=== PATIENT | female | born 1990 | race Caucasian/White ===

== ENCOUNTER 2016-11-27 08:12 | Inpatient (IN) ==
[2016-11-27] MEDS ORDERED: ONDANSETRON 4 MG/2 ML VIAL IV PRN ×2 (08:29→12:29)
[2016-11-27] MEDS ORDERED: MEPERIDINE 50 MG/1 ML VIAL IV PRN (08:29)
[2016-11-27] MEDS ORDERED: BUTORPHANOL 2 MG/ML VIAL IV PRN (08:29)
[2016-11-27] MEDS ORDERED: LACTATED RINGERS 1,000 ML IV SCH (08:30)
[2016-11-27] MEDS ORDERED: AMPICILLIN INJ 2,000 MG in SODIUM CHLORIDE 0.9% 100 ML IV ONE (08:34)
[2016-11-27] MEDS ORDERED: ePHEDrine 50 MG/ML AMP IV PRN (08:39)
[2016-11-27] MEDS ORDERED: FAMOTIDINE 20 MG/2 ML VIAL IV ONE (08:39)
[2016-11-27] MEDS ORDERED: hydrOXYzine HCL 25 MG/1 ML VIAL IM PRN (08:39)
[2016-11-27] MEDS ORDERED: diphenhydrAMINE 50 MG/1 ML VIAL IV PRN (08:39)
[2016-11-27] MEDS ORDERED: fentaNYL 2 MCG/ROPIV 0.2% EPID 150 ML EPIDURAL SCH (08:39)
[2016-11-27] MEDS ORDERED: LACTATED RINGERS 1,000 ML IV ONE (08:39)
[2016-11-27 08:43] LABS: Basophils % 0.1 % (0.0-0.8); Eosinophils % 0.1 % (0.00-10.9); Hematocrit 27.3 VOL% (35.7-47.0); Immature Granulocytes % 0.6 %; Immature Granulocytes Absolute 0.05 #; Lymphocytes # 1.1 10*3/uL (1.4-4.0); Lymphocytes % 12.6 % (21.3-54.2); Mean Corpuscular Hemoglobin 25 PG (27-34); Mean Corpuscular Volume 76.5 FL (87-102); Monocytes # 0.7 10*3/uL (0.11-0.8); Monocytes % 8.2 % (1.7-12.7); NRBC # 0.02 10*3/uL; Neutrophils # 6.6 10*3/uL (1.4-7.4); Neutrophils % 78.4 % (38.7-73.9); Platelet Count 247 T/CUMM (130-400); Red Blood Count 3.57 MC/CUMM (3.8-5.5); Red Cell Distribution Width 16.4 % (9.3-17.3); White Blood Count 8.4 T/CUMM (4-12)
[2016-11-27] MEDS ORDERED: CITRIC ACID/SODIUM CITRATE 30 ML UDCUP ONE (08:52)
[2016-11-27] MEDS ORDERED: CITRIC ACID/SODIUM CITRATE 30 ML UDCUP PO ONE (08:57)
[2016-11-27 09:27] LABS: Albumin 2.4 G/DL (3.4-5.0); Bilirubin,Total 0.4 MG/DL (0.2-1.0); Calcium 8.6 MG/DL (8.5-10.1); Osmolality,Calculated 275.5 MOS/KG (273-304); Potassium 3.5 MMOL/L (3.5-5.1); Total Protein 6.7 G/DL (6.4-8.3); Uric Acid 4.4 MG/DL (2.6-6.0)
[2016-11-27] MEDS ORDERED: OXYTOCIN/LR 20 UNIT/1,000 ML BAG IV SCH (10:00)
[2016-11-27 11:02] LABS: Apearance,Urine CLEAR (Clear); Bilirubin,Urine Small mg/dL (Negative); Blood, Urine Negative (Negative); Glucose,Urine (UA) Negative (Negative); Ketones,Urine 20 mg/dL (Negative); Mucus,Urine Few /LPF (Occasional); Nitrite,Urine Negative (Negative); Protein,Urine 100 MG/DL; RBC,Urine 4 /HPF (0-4); Squamous Epithelial Cell,Urine Occasional /HPF (0-10); Urine Color Dark yellow (Yellow); Urine Specific Gravity 1.035 (1.001-1.035); Urine Urobilinogen < 2.0 EU/DL (0.2-1.0); WBC,Urine 5 /HPF (0-6)
--- NOTE | 2016-11-27 11:35 | OB/GYN History & Physical ---
History of Present Illness History of present illness: Ms. Walls is a 26 year old female 4 para 2 AB 1, presents in active labor at spine to 6 cm dilated. This patient has had approximately 2 visits. She has a known history of drug usage positive for opioids, and she is also taking Neurontin 3 times a day. Patient claims that the reason why she has not had any care because she did not qualify for Medicaid and did not have any revenue. On admission she was examined and found to be 5 cm, artificial rupture membranes demonstrated thick meconium staining as well. We ordered a amnioinfusion and an epidural. Will await for an anticipated vaginal . Home Medications Medication Instructions Recorded Confirmed Type Gabapentin [Gabapentin] 400 mg PO TID MDD 1200 MG 06/06/16 11/26/16 History Vit No.124/Iron/Folic 1 tablet PO DAILY MDD ONE TAB 11/26/16 11/26/16 History [ Vitamin Tablet] Allergies Allergy/AdvReac Type Severity Reaction Status Date / Time nitrofurantoin Allergy Severe Unknown/Unable Verified 11/27/16 08:42 [From Macrobid] to obtain lamotrigine [From Lamictal] Allergy Intermediate ITCHING Verified 11/27/16 08:42 Sulfa (Sulfonamide Allergy ANAPHYLAXIS Verified 06/06/16 13:37 Antibiotics) Medical,Surgical,& Family Hx - Medical History Cardio: History of: Cardiovascular Problems (TACHYCARDIA) Psychological: History of: Depression HEENT: History 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") - Surgical History HEENT Surgeries: Surgical HX of: Eye Surgery Patient denies: Thyroid Surgery, Tonsilectomy & Adenoidectomy Abdominal Surgeries: Surgical HX of: Appendectomy - Family History Family History: Reports;: Family Diabetes, Family Heart Disease, Family Psychiatric Problems Denies;: Family Anesthesia Reaction - Social History Smoking Status: Never smoker Frequency of Alcohol Use: None Type of Drug Use: None Exam ORTHODONTIST - Constitutional General appearance: mild distress - Antepartum / Post Antepartum Exam Cervix - Dilatation: 5 cm Rupture: Thick meconium Heart Rate: Category 1 - Head Head exam: Present: normal inspection - Eye Eye exam: Present: EOMI Pupils: Present: ALBERTO - ENT ENT exam: Present: normal exam - Neck Neck exam: Present: normal inspection - Respiratory Respiratory exam: Present: clear to auscultation bilaterally - Breast Breasts: as per HPI Menstruation: as per HPI - Cardiovascular Cardiovascular exam: Present: regular rate and rhythm - GI/Abdominal GI/Abdominal exam: Present: normal bowel sounds - Extremities Exam Extremities exam: Present: normal inspection - Back Exam Back exam: Present: normal inspection - Neurological Exam Neurological exam: Present: alert - Psychiatric Psychiatric exam: Present: normal affect - Skin Skin exam: Present: normal color Assessment and Plan (1) No care in current Status: Acute Current Visit: Yes (2) Drug usage Status: Acute Current Visit: Yes (3) Active labor Status: Acute Assessment and plan: Anticipate , risks benefits thoroughly discussed, nursery was notified, social media marketing specialist was also notified Current Visit: Yes Results - Labs CBC & BMP: 11/27/16 08:38 11/27/16 08:38 Quality Measures - VTE Contraindication to Pharmacological VTE Prophylaxis: Clinical assessment deems Pt at low risk, no prophalaxis needed
[2016-11-27] MEDS ORDERED: BISACODYL 10 MG SUPP RECTAL PRN (12:29)
[2016-11-27] MEDS ORDERED: DIPH/TET/ACEL PERT BOOSTER VACCINE 0.5 ML VIAL IM ONE (12:29)
[2016-11-27] MEDS ORDERED: MEASLES/MUMPS/RUBELLA VACCINE 0.5 ML VIAL SUBCUT ONE (12:29)
[2016-11-27] MEDS ORDERED: RHO(D) IMMUNE GLOBULIN 300 MCG SYRINGE IM ONE (12:29)
[2016-11-27] MEDS ORDERED: oxyCODONE/ACETAMINOPHEN 5-325 MG TABLET PO PRN (12:29)
[2016-11-27] MEDS ORDERED: WITCH HAZEL PADS 100/JAR TOP PRN (12:29)
[2016-11-27] MEDS ORDERED: OXYTOCIN/LR 20 UNIT/1,000 ML BAG IV ONE (12:29)
[2016-11-27] MEDS ORDERED: HYDROCORTISONE 2.5% RECTAL CREAM 30 GM TUBE TOP PRN (12:29)
[2016-11-27] MEDS ORDERED: ACETAMINOPHEN 325 MG TABLET PO PRN (12:29)
[2016-11-27] MEDS ORDERED: BENZOCAINE 20%/MENTHOL 0.5% SPRAY 56 GM CAN TOP PRN (12:29)
[2016-11-27] MEDS ORDERED: LANOLIN 50% CREAM 0.3 OZ TUBE TOP PRN (12:29)
--- NOTE | 2016-11-27 12:29 | Event Note ---
Delivery note Stage I of labor Artificial rupture membranes thick meconium staining IUPC with amnioinfusion External monitoring heart tones demonstrated category 1 IV Pitocin Epidural anesthetic Stage II Delivery time is 12:17 PM Female infant Weight is pending at this time Apgars was 6 at 1 minute and 7 at 5 minutes, sats were 40% Fetus was bagged upon exit suction the normal nasal cavity and oral cavity, also the nurses in attendance suctioned and removed deep meconium fluid. Cord blood and cord gas was obtained Stage III Manual removal of the placenta 3 cord vessels Placenta was sent to lab for further evaluation Blood loss was less than 250 cc [place] taken to the NICU for further evaluation
[2016-11-27 12:31] LABS: Cord Venous Blood HCO3 19.3 MMOL/L; Cord Venous Blood PCO2 29.4 MMHG; Cord Venous Blood PO2 21.5 MMHG
[2016-11-27 12:34] LABS: Cord Arterial Blood HCO3 22.1 MMOL/L
[2016-11-27] MEDS ORDERED: AMPICILLIN INJ 1,000 MG in SODIUM CHLORIDE 0.9% 100 ML IV SCH (13:00)
[2016-11-27 13:32] LABS: Barbiturates Screen,Urine Negative (Negative); Benzodiazepines Screen,Urine Negative (Negative); Cannabinoid Screen,Urine Negative (Negative); Opiate Screen,Urine Positive (Negative); Phencyclidine Screen,Urine Negative (Negative)
[2016-11-27] MEDS: IBUPROFEN 800 MG TABLET PO PRN ×2 (14:57→20:46)
[2016-11-27] MEDS: oxyCODONE/ACETAMINOPHEN 5-325 MG TABLET PO PRN (16:17)
[2016-11-28] MEDS: oxyCODONE/ACETAMINOPHEN 5-325 MG TABLET PO PRN ×3 (00:15→13:12)
[2016-11-28 05:41] LABS: Basophils % 0.3 % (0.0-0.8); Eosinophils % 0.1 % (0.00-10.9); Hematocrit 23.1 VOL% (35.7-47.0); Hemoglobin 7.4 GM/DL (12.0-16.0); Immature Granulocytes % 0.7 %; Immature Granulocytes Absolute 0.05 #; Lymphocytes # 1.8 10*3/uL (1.4-4.0); Lymphocytes % 23.9 % (21.3-54.2); Mean Corpuscular Hemoglobin 25 PG (27-34); Mean Corpuscular Volume 78.3 FL (87-102); Mean Platelet Volume 10.6 FL (9.6-12.0); Monocytes # 0.8 10*3/uL (0.11-0.8); NRBC # 0.02 10*3/uL; Neutrophils # 4.7 10*3/uL (1.4-7.4); Platelet Count 195 T/CUMM (130-400); Red Blood Count 2.95 MC/CUMM (3.8-5.5); Red Cell Distribution Width 16.7 % (9.3-17.3); White Blood Count 7.4 T/CUMM (4-12)
[2016-11-28] MEDS: DOCUSATE SODIUM 100 MG CAPSULE PO SCH ×2 (06:09→08:43)
[2016-11-28] MEDS ORDERED: SODIUM CHLORIDE 0.9% 250 ML IV PRN (08:23)
[2016-11-28] MEDS ORDERED: FERROUS SULFATE 325 MG TABLET PO SCH (09:00)
[2016-11-28] MEDS ORDERED: SODIUM CHLORIDE 0.9% 1,000 ML IV SCH (10:30)
[2016-11-28] MEDS: IBUPROFEN 800 MG TABLET PO PRN (11:05)
[2016-11-28 17:25] LABS: Hematocrit 30.8 VOL% (35.7-47.0)
--- NOTE | 2016-11-28 17:26 | Discharge Summary ---
Hospital Course - Hospital Course Hospital Course: 26-year-old female status post vaginal day #1. Patient delivered a term . Meconium staining was noted patient was evaluated by the nursery's and found to have a needle meconium aspiration. The patient was transferred to [facility]. Patient at this time is doing well however blood count was 7 and 23.6. She has no excessive active bleeding or pain or discomfort. Will recommend transfusing 2 units of packed RBCs and patient will be discharged. Final diagnosis is anemia, no care, meconium aspiration of 36 weeks 6 day . Diagnosis - Discharge Diagnosis (1) No care in current Status: Acute (2) Drug usage Status: Acute (3) Active labor Status: Acute Specialty Discharge - Follow Up or Referrals Follow up with: Niko Farley MD [Physician] - Discharge Plan - Discharge Data Condition at Discharge: Stable Discharge Diet: advance to your usual diet Activity: increase activity as tolerated Hygiene: may shower Weight Bearing at Discharge: full weight bearing, weight bear as tolerated Driving: not for (1 week) Contact your physician if you experience:: fever over 101, Difficulty voiding, Shortness of breath, Bleeding - Discharge Medications New NIFEdipine XL TAB [Procardia Xl] 30 mg PO DAILY #14 tablet No Action Gabapentin Cap/Tab [Neurontin Cap/Tab] 400 mg PO TID - Follow Up or Referral Follow Up: Niko Farley MD [Physician] - - Forms/Instructions Instructions: Depression (GEN), Perineal Care (DC), Pre- eclampsia and Eclampsia (DC), Bleeding (DC) Exam - Constitutional Vitals: Period Temp Pulse Resp BP Sys/Irene Pulse Ox Last 24 Hr 97.1 F-99.2 F 64-98 18-20 136-160/76-98 98-100 Discharge Results Procedures and tests throughout hospitalization: Pending Orders 11/28/16 17:16 HH [Hemoglobin and Hematocrit] Routine Labs on day of discharge: Labs from last 24 hours 11/28/16 11/28/16 11/28/16 08:43 07:40 05:26 WBC 7.4 RBC 2.95 L Hgb 7.4 L Hct 23.1 L MCV 78.3 L MCH 25 L MCHC 32.0 RDW 16.7 Plt Count 195 D MPV 10.6 Neut % (Auto) 64.0 Lymph % (Auto) 23.9 [place] % (Auto) 11.0 Eos % (Auto) 0.1 Baso % (Auto) 0.3 Neut # (Auto) 4.7 Lymph # (Auto) 1.8 [place] # (Auto) 0.8 Eos # (Auto) 0.0 Baso # (Auto) 0.0 Immature Gran % 0.7 Nucleated RBC % 0.3 Immature Gran # 0.05 Nucleated RBCs # 0.02 [place] IgG Antibody 33.3 Blood Type Cancelled Antibody Screen Cancelled Crossmatch See Detail Blood Bank Comment Cancelled DS: Provider Date of admission: 11/27/16 12:30 Primary care physician: Akhil Stacy Attending physician on admission: Niko Farley MD Consults: 11/27/16 08:29 Consult to Anesthesiology [CONS] Routine Consulting Provider: Reason for Anesthesiology: Epidural Consult Comment: Epidural for pain managment 11/27/16 10:27 Consult to Case Mgmt/Social Srvs [CONS] Routine Reason for Case Mgmt/Social Srvs: Other Consult Comment: POSITIVE DRUG SCREEN. NO CARE. 11/27/16 12:30 Consult to Artist Consultant [CONS] Routine Consult Artist Consultant: Breast Feeding Discharging clinician: Niko Farley MD
[2016-11-28 18:03] VITALS: BP 162/91
--- NOTE | 2016-12-01 14:24 | Pathology Report from [facility] ---
[facility] ACCESSION # : [id number] PATIENT NAME : Brianna Nunez ORDERING DR : SHANE MARQUEZ MD CLINICAL HX: IUP @ 38.5 weeks - Vaginal delivery with meconium stained and no care. History of positive drug screen. POST-OP DX: Same SPECIMEN INFO: Placenta GROSS DESCRIPTION: Received fresh labeled BRIANNA MCKEON & PLACENTA is a placenta weighing 538 gms and measuring 16.0 x 14.5 x 3.2 cm. The membranes are translucent with meconium staining noted. The umbilical cord measures 29.0 cm, contains three vessels and is centrally inserted. There is a large fibrous area at the base of the cord measuring 5.0 x 2.5 cm. The surface is [place] pink with a 8.5 cm rent area noted. The maternal surface is markedly disrupted with no abnormalities seen on sectioning. Sections submitted A- membranes and cord, B- and maternal surfaces. DIAGNOSIS FOR BRIANNA NUNEZ: PLACENTA, MEMBRANES, UMBILICAL CORD: Focal placental infarction with dystrophic calcification, mild intervillous blood, acute placentitis. Tri-vessel umbilical cord. Membranes with attached blood. COLLECTED DATE: 11/27/2016 [facility] REPORT DATE: 11/30/2016 ELECTRONICALLY SIGNED BY: Delia Beasley M.D. 11/30/2016 - 9:27:38 [facility] [place] [facility]ISION[facility]
== END 2016-11-28 18:14 | disposition home or self-care (01) | DRG 775 ==
LOC: N.LDOUT 08:12 → N.LD 08:14 → N.OB 14:30
PROVIDERS: ADMIT Obstetrics & Gynecology; ATTEND Obstetrics & Gynecology

== ENCOUNTER 2019-10-04 20:51 | Inpatient (IN) ==
[2019-10-04] MEDS ORDERED: LEVOFLOXACIN INJ 750 MG in PREMIX 1 EACH IV STA (22:10)
[2019-10-04] MEDS ORDERED: SODIUM CHLORIDE 0.9% 1,000 ML IV STA (22:10)
[2019-10-04] MEDS ORDERED: ONDANSETRON 4 MG/2 ML VIAL IV STA (22:11)
[2019-10-04] MEDS ORDERED: KETOROLAC 30 MG/1 ML VIAL IV STA (22:11)
[2019-10-04 22:22] LABS: Basophils % 0.5 % (0.0-0.8); Eosinophils % 0.3 % (0.00-10.9); Hematocrit 29.1 VOL% (35.7-47.0); Hemoglobin 8.5 GM/DL (12.0-16.0); Immature Granulocytes % 0.5 %; Immature Granulocytes Absolute 0.03 #; Lymphocytes # 1.5 10*3/uL (1.4-4.0); Lymphocytes % 24.7 % (21.3-54.2); Mean Corpuscular HGB Conc 29.2 GM/DL (32-36); Mean Corpuscular Volume 78.4 FL (87-102); Mean Platelet Volume 9.4 FL (9.6-12.0); Monocytes % 11.5 % (1.7-12.7); Neutrophils % 62.5 % (38.7-73.9); Platelet Count 240 T/CUMM (130-400); Red Blood Count 3.71 MC/CUMM (3.8-5.5); Red Cell Distribution Width 16.3 % (9.3-17.3); White Blood Count 6.2 T/CUMM (4-12)
[2019-10-04 22:46] LABS: Alanine Aminotransferase 20 U/L (13-56); Albumin 3.1 G/DL (3.4-5.0); Alkaline Phosphatase 102 U/L (45-117); Aspartate Amino Transferase 19 U/L (0-37); Bilirubin,Total < 0.39 MG/DL (0.2-1.0); Blood Urea Nitrogen 6 MG/DL (7-18); Calcium 8.6 MG/DL (8.5-10.1); Estimated Glom Filtration Rate 121 ML/MIN; Glucose 93 MG/DL (74-106); Osmolality,Calculated 265.2 MOS/KG (273-304); Total Protein 7.3 G/DL (6.4-8.3)
[2019-10-04] MEDS ORDERED: NICOTINE 21 MG/24 HR PATCH TRANSDERM PRN (23:16)
[2019-10-04] MEDS ORDERED: ZALEPLON 5 MG CAPSULE PO PRN (23:16)
[2019-10-04] MEDS ORDERED: ONDANSETRON 4 MG/2 ML VIAL IV PRN (23:16)
[2019-10-04] MEDS ORDERED: diphenhydrAMINE CAP 25 MG CAPSULE PO PRN (23:16)
[2019-10-04] MEDS ORDERED: GLUCAGON 1 MG VIAL IM PRN (23:16)
[2019-10-04] MEDS ORDERED: ALBUTEROL 2.5 MG/3 ML NEB RESP TX PRN (23:16)
[2019-10-04] MEDS ORDERED: hydrALAZINE 20 MG/1 ML VIAL IV PRN (23:16)
[2019-10-04] MEDS ORDERED: DOCUSATE SODIUM 100 MG CAPSULE PO PRN (23:16)
[2019-10-04] MEDS ORDERED: DEXTROSE 50% 25 GM/50 ML VIAL IV PRN (23:16)
[2019-10-04] MEDS ORDERED: PROMETHAZINE 25 MG/1 ML VIAL IM PRN (23:16)
[2019-10-04] MEDS ORDERED: guaiFENesin/DM ER 600-30 MG TABLET PO PRN (23:16)
[2019-10-04] MEDS ORDERED: SODIUM CHLORIDE 0.9% 1,000 ML IV SCH (23:30)
[2019-10-05] MEDS: MORPHINE 4 MG/1 ML VIAL IV PRN ×2 (00:51→06:41)
[2019-10-05 04:37] LABS: Basophils % 0.5 % (0.0-0.8); Eosinophils % 0.5 % (0.00-10.9); Hematocrit 25.1 VOL% (35.7-47.0); Hemoglobin 7.4 GM/DL (12.0-16.0); Immature Granulocytes % 0.2 %; Immature Granulocytes Absolute 0.01 #; Lymphocytes # 1.2 10*3/uL (1.4-4.0); Lymphocytes % 29.5 % (21.3-54.2); Mean Corpuscular HGB Conc 29.5 GM/DL (32-36); Mean Platelet Volume 10.1 FL (9.6-12.0); Monocytes % 13.6 % (1.7-12.7); Neutrophils % 55.7 % (38.7-73.9); Platelet Count 203 T/CUMM (130-400); Red Blood Count 3.26 MC/CUMM (3.8-5.5); Red Cell Distribution Width 16.4 % (9.3-17.3); White Blood Count 4.1 T/CUMM (4-12)
[2019-10-05 05:52] LABS: Calcium 8.3 MG/DL (8.5-10.1); Osmolality,Calculated 268.8 MOS/KG (273-304)
[2019-10-05] MEDS ORDERED: SODIUM CHLORIDE 0.9% 1,000 ML IV PRN (06:20)
[2019-10-05 06:34] LABS: Basophils % 0.2 % (0.0-0.8); Eosinophils % 0.5 % (0.00-10.9); Hematocrit 27.1 VOL% (35.7-47.0); Immature Granulocytes % 0.5 %; Immature Granulocytes Absolute 0.02 #; Lymphocytes # 0.9 10*3/uL (1.4-4.0); Lymphocytes % 22.4 % (21.3-54.2); Mean Corpuscular HGB Conc 29.5 GM/DL (32-36); Mean Corpuscular Volume 76.8 FL (87-102); Mean Platelet Volume 9.8 FL (9.6-12.0); Monocytes % 13.8 % (1.7-12.7); Neutrophils % 62.6 % (38.7-73.9); Platelet Count 209 T/CUMM (130-400); Red Blood Count 3.53 MC/CUMM (3.8-5.5); Red Cell Distribution Width 16.5 % (9.3-17.3); White Blood Count 4.1 T/CUMM (4-12)
[2019-10-05 07:16] LABS: Folate 17.2 NG/ML (5.4-24.0); Vitamin B12 280 PG/ML (211-911)
[2019-10-05 07:40] LABS: Sedimentation Rate-Westergren 78 MM/HR (0-20)
[2019-10-05 08:14] VITALS: BP 145/85
[2019-10-05] MEDS ORDERED: PANTOPRAZOLE 40 MG TABLET PO SCH (09:00)
[2019-10-05 11:31] LABS: Hemoglobin A1 (Alkaline) 97.3 % (96.5-98.5); Hemoglobin A2 (Alkaline) 2.7 % (1.5-3.5)
[2019-10-05] MEDS ORDERED: LEVOFLOXACIN INJ 750 MG in PREMIX 1 EACH IV SCH (18:30)
== END 2019-10-05 11:50 | disposition hospice, home (50) | DRG 463 ==
LOC: N.ED 20:51 → SUATTDRO 23:16 → N.EDINP 23:16 → N.3E 10-05 00:15
PROVIDERS: ADMIT Internal Medicine; ATTEND Internal Medicine